=== PATIENT | male | born 2000 | race Caucasian/White ===

== ENCOUNTER 2023-08-01 20:38 | Emergency (ER) | payer OTHER ==
[~2023-08-01] VITALS: Ht 162.6 cm; Wt 86.2 kg
[2023-08-02] MEDS ORDERED: ALMACONE SUSPE355 ML PO (04:33)
== END 2023-08-02 04:41 | disposition home or self-care (01) ==
LOC: ER 20:38
DX: R07.2 Precordial pain (principal); J45.909 Unspecified asthma, uncomplicated; M41.9 Scoliosis, unspecified
CPT/HCPCS: 93005; 93010; 99284-25